=== PATIENT | male | born 1965 | race Two or more races ===

== ENCOUNTER → 2024-03-15 | Outpatient (CLI) | payer MEDICAID, SELFPAY ==
--- NOTE | 2024-03-15 11:30 | XR_ITS ---
Examination: CT soft tissue neck, without intravenous contrast. CT soft tissue neck with intravenous contrast 2-D coronal reconstructions. 2-D sagittal reconstructions. Date and time of exam :March 15, 2024 1316 hours INDICATIONS: Palpable masses in the neck 4 months. CTDI: vol (mGy):33 DLP: (mGycm):1020 Technique: 1.25 mm axial sections of the neck of the obtained., Pre and post 50 cc Isovue-370 Coronal and sagittal reconstructions have been obtained. Low dose protocols were performed. One or more of the following dose reduction techniques were used; automated exposure control, adjustment of the mA and/or KV according to patient size, use of iterative reconstruction technique. Findings: Symmetrical nasopharynx oropharynx Bilateral subcentimeter carotid triangle lymph nodes The larynx appears normal No encroachment, subglottic region Small thyroid lobes Normal epiglottis Lung apices clear IMPRESSION: No pathologic cervical lymphadenopathy If palpable abnormalities persist, recommend ultrasound soft tissue neck follow-up in 3 months
== END | disposition home or self-care (01) ==
PROVIDERS: PCP Behavior Technician; Referring Provider Behavior Technician; Visit Provider Behavior Technician
DX: R22.1 Localized swelling, mass and lump, neck (principal); R59.0 Localized enlarged lymph nodes
CPT/HCPCS: 70492; A4649; Q9967

== ENCOUNTER → 2024-05-12 | Outpatient (CLI) | payer MEDICAID, SELFPAY ==
--- NOTE | 2024-05-12 16:00 | XR_ITS ---
Examination: Ultrasound soft tissue neck TECHNIQUE: Sonographic images soft tissue neck Exam date and time: August 09, 2024 1451 hours INDICATIONS: Palpable mass in the lower lateral left neck note is 6 months ago, increasing in size FINDINGS: 1.0 x 0.4 x 1.1 cm lymph node at the area concern IMPRESSION: IMPRESSION: Nonspecific lymph node at the area of concern, recommend 3 month follow-up
== END | disposition home or self-care (01) ==
LOC: CDIM 15:33
PROVIDERS: Referring Provider Internal Medicine; Visit Provider Internal Medicine
DX: R22.1 Localized swelling, mass and lump, neck (principal)
CPT/HCPCS: 76536

== ENCOUNTER → 2024-12-31 | Outpatient (CLI) | payer MEDICAID, SELFPAY ==
--- NOTE | 2024-12-30 10:30 | EKG_ITS ---
[facility] Test Date: 2024-12-31 Pat Name: FELICITAS KEY Department: Room: - Gender: Male [employer]: LUCILA : 1965 Requested By: Michel Villalpando Order Number: [id number] Reading MD: Michel Villalpando Measurements Intervals Orick Rate: 82 P: ND: QRS: 11 QRSD: 141 T: 94 QT: 351 QTc: 411 Interpretive Statements ATRIAL FIBRILLATION RIGHT BUNDLE BRANCH BLOCK No previous ECG available for comparison [id number]
== END | disposition home or self-care (01) ==
LOC: SEKG 01-06 07:19
PROVIDERS: Referring Provider Surgery; Visit Provider Surgery
DX: Z01.810 Encounter for preprocedural cardiovascular examination (principal); K80.20 Calculus of gallbladder without cholecystitis without obstruction
CPT/HCPCS: 80053; 85025; 85610; 85730; 93005

== ENCOUNTER → 2025-03-15 | Outpatient (CLI) | payer MEDICAID, SELFPAY ==
--- NOTE | 2025-03-15 16:00 | XR_ITS ---
EXAMINATION: Ultrasound soft tissue neck TECHNIQUE: Grayscale sonographic images soft tissue neck INDICATIONS: Palpable lump lower left neck 1 year increasing in size FINDINGS: Soft tissue lymph node left lateral neck 10 x 3 x 8 mm IMPRESSION: Nonspecific lymph node in the soft tissue left lateral neck as above Consider CT soft tissue neck post contrast follow-up
== END | disposition home or self-care (01) ==
PROVIDERS: PCP Behavior Technician; Referring Provider Behavior Technician; Visit Provider Behavior Technician
DX: R22.1 Localized swelling, mass and lump, neck (principal)
CPT/HCPCS: 76536